=== PATIENT | male | born 1960 | race Caucasian/White ===

== ENCOUNTER → 2017-04-04 | Outpatient (CLI) | payer BC, MEDICARE, OTHER ==
[~2017-04-04] MED LIST: ACETAMINOPHEN325 MG PO; ALTACE10 MG PO; ANUCORT-HC25 MG/SUPP PR; ASPIRIN81 M1 PO; ASPIRIN81 MG PO; CLOPIDOGREL BIS75 MG PO; COMBIVENT U/D3 M2 IH; COMBIVENT U/D3 M2 INH; COREG12.5 MG PO; COUMADIN PO; COZAAR100 MG PO; EXFORGE HCT 101 EAC2 PO; FLEXERIL10 MG; FLEXERIL10 MG PO; FLOMAX0.4 M1 PO; FOLIC ACID1 MG PO; LIPITOR PO; LIPITOR20 MG PO; LODINE400 MG PO; LOPRESSOR PO; MONOCAPS TABLE1 EACH PO; MULTIVITAMIN1 UDCAP PO; NORVASC10 MG PO; OMEPRAZOLE40 M1 PO; PLAVIX PO; PREVACID15 MG PO; PRILOSEC PO; PROBIOTIC1 EAC1 PO; SYMBICORT INH; THIAMINE HCL100 MG PO; VALSARTAN80 MG PO; VENTOLIN IH; VENTOLIN5 MG/ML INH; VIIBRYD40 MG PO; ZOCOR80 MG PO; ZOLOFT100 MG PO
--- NOTE | ~2017-04-04 | ST ---
Unit #: [id number] #: [id number] Patient: TRAVIS SHEN [id number] [address] [address] [id number] O MR#: [id number] NAME: TRAVIS SHEN. : 1960 SEX: M STUDY DATE/TIME: 04/04/2017 UNIT: [facility] ROOM: STUDY DESCRIPTION: Stress test Attending Physician: Daisy Agustin M.D. Referring Physician: Daisy Agustin M.D. Primary Care Physician: Radha Khalil M.D. CARDIOLOGY REPORT EXAM Lexiscan stress test. FINDINGS Result text under nuclear order number. Please see this order for result text. Dictated by... Giacomo Kennedy/kimberly TD: 04/04/2017 13:39 JOB #: [id number] CARDIOLOGY REPORT Page 1 of 1 X Charlie Dempsey MD CARDIOLOGY REPORT
--- NOTE | ~2017-04-04 | TH ---
Unit #: [id number] #: [id number] Patient: TRAVIS SHEN [id number] [address] [address] [id number] O MR#: [id number] NAME: TRAVIS SHEN. : 1960 SEX: M STUDY DATE/TIME: 04/04/2017 UNIT: [facility] ROOM: STUDY DESCRIPTION: Cardiolite study Attending Physician: Daisy Agustin M.D. Referring Physician: Daisy Agustin M.D. Primary Care Physician: Radha Khalil M.D. CARDIOLOGY REPORT EXAM Stress and Cardiolite study. FINDINGS The patient's baseline heart rate is 57 beats per minute, blood pressure 153/77. The patient received Lexiscan infusion as per protocol. At peak infusion, heart rate 70, blood pressure 162/81. The patient's baseline EKG is showing sinus bradycardia with nonspecific ST-T changes. During Lexiscan infusion recovery, no further ST-T changes. The patient also received 10.67 mCi of Cardiolite at rest and 31.8 mCi of stress during stress. Both sets of images were compared. The patient shows a fairly uniform uptake of radiotracer except in inferoapical area, during the stress images, there was a small ischemic defect. No other defect was noted. The patient also had gated SPECT scan done which showed normal LV size and function. No wall motion abnormality detected. Ejection fraction is 56%. INTERPRETATION OF THE TEST 1. EKG part of the test negative for Lexiscan induced ischemia. 2. Nuclear part of the test is positive for small inferoapical ischemia. 3. Gated SPECT scan showed normal LV size and function. Dictated by... Giacomo Kennedy/kimberly TD: 04/04/2017 13:35 JOB #: [id number] CARDIOLOGY REPORT Page 1 of 1 X Charlie Dempsey MD CARDIOLOGY REPORT
== END | disposition home or self-care (01) ==
LOC: CNUC 07:35
DX: E78.5 Hyperlipidemia, unspecified (principal)
CPT/HCPCS: 78452; 93017; A9500; J2785

== ENCOUNTER → 2017-05-29 | Outpatient (CLI) | payer BC, MEDICARE, OTHER ==
--- NOTE | ~2017-05-29 | US85 ---
[facility] A Service of [facility] & [facility] RADIOLOGY TEXT RESULTS PATIENT: TRAVIS SHEN LOCATION: CNIV : 60 UNIT #: [id number] AGE: [address]: Radha Khalil MD SEX: M ORDER DR: [id number] [facility] [address] [place], [place] [address] [id number] O MR#: [id number] Acc #: [id number] NAME: TRAVIS SHEN. : 1960 SEX: M STUDY DATE/TIME: 05/29/2017 15:00 UNIT: [facility] ROOM: STUDY DESCRIPTION: LE [employer] Attending Physician: Radha Khalil M.D. Referring Physician: Radha Khalil M.D. Ordering Physician: Radha Khalil M.D. Primary Care Physician: Radha Khalil M.D. MEDICAL IMAGING REPORT This report is preliminary unless electronic signature is present EXAM Left lower extremity venous Doppler 05/29/2017 HISTORY Left leg pain for 3 weeks. FINDINGS The left common femoral vein, femoral vein, popliteal vein, tibial veins demonstrate patency and compressibility. There is phasic and spontaneous flow with respiration and augmentation. Proximal and distal greater saphenous vein is patent and compressible. IMPRESSION No evidence of left lower extremity deep vein thrombosis. Dictated by... Sherrie Mills M.D. THIS IS AN ELECTRONICALLY VERIFIED REPORT Sherrie Mills M.D. at 06/07/2017 8:50 AM Mariama TD: 05/30/2017 06:24 JOB #: [id number] MEDICAL IMAGING REPORT Page 1 of 1 COPY
--- NOTE | ~2017-05-29 | US136 ---
[facility] A Service of [facility] & [facility] RADIOLOGY TEXT RESULTS PATIENT: TRAVIS SHEN LOCATION: CNIV : 60 UNIT #: [id number] AGE: [address]: Radha Khalil MD SEX: M ORDER DR: [id number] [facility] [address] [place], [place] [address] [id number] O MR#: [id number] Acc #: [id number] NAME: TRAVIS SHEN. : 1960 SEX: M STUDY DATE/TIME: 05/29/2017 14:52 UNIT: [facility] ROOM: STUDY DESCRIPTION: US U/L Ext [employer] Bil Attending Physician: Radha Khalil M.D. Referring Physician: Radha Khalil M.D. Ordering Physician: Gautam Monroe Aprn Primary Care Physician: Radha Khalil M.D. MEDICAL IMAGING REPORT This report is preliminary unless electronic signature is present EXAM Bilateral lower extremity KIM. REASON FOR EXAM Peripheral arterial disease. FINDINGS The right brachial pressure is 171 and left is 211. Right dorsalis pedis pressure is 221 and posterior tibial of 221 for an KIM of 1.07 and a first toe pressure of 153 mmHg. Left dorsalis pedis pressure is 196 and posterior tibial is 191 for an KIM of 0.93 and a first toe pressure of 174 mmHg. PVR waveform at the ankle level was not obtained, but toe waveforms appeared to be normal bilaterally. Arterial waveforms of the dorsalis pedis and posterior tibial arteries noted triphasic waveforms bilateral. IMPRESSION No arterial insufficiency in either the right or the left lower extremity with adequate perfusion of the first toes. Dictated by... Sherrie Mills M.D. THIS IS AN ELECTRONICALLY VERIFIED REPORT Sherrei Mills M.D. at 05/31/2017 10:34 AM MARCI/emma TD: 05/30/2017 06:32 JOB #: [id number] MEDICAL IMAGING REPORT Page 1 of 1 COPY
--- NOTE | ~2017-05-29 | US83 ---
[facility] A Service of [facility] & [facility] RADIOLOGY TEXT RESULTS PATIENT: TRAVIS SHEN LOCATION: CNIV : 60 UNIT #: [id number] AGE: [address]: Radha Khalil MD SEX: M ORDER DR: [id number] [facility] [address] [place], [place] [address] [id number] O MR#: [id number] Acc #: [id number] NAME: TRAVIS SHEN. : 1960 SEX: M STUDY DATE/TIME: 05/29/2017 15:12 UNIT: [facility] ROOM: STUDY DESCRIPTION: US LE [employer] Attending Physician: Radha Khalil M.D. Referring Physician: Radha Khalil M.D. Ordering Physician: Gautam Monroe Aprn Primary Care Physician: Radha Khalil M.D. MEDICAL IMAGING REPORT This report is preliminary unless electronic signature is present EXAM Right lower extremity graft arterial duplex 05/29/2017 HISTORY Peripheral arterial disease. FINDINGS The right common femoral artery is the inflow vessel appears to be widely patent with a velocity of 84 cm/sec. Bypass graft is noted from the common femoral artery and appears to be widely patent. Proximal anastomosis is 97 cm/sec. Proximal bypass graft velocity is 76 cm/sec, upper thigh 69 cm/sec, mid thigh 71 cm/sec, distal thigh 65 cm/sec, and distally 72 cm/sec. Distal anastomosis is not well seen. Outflow via the posterior tibial artery is widely patent with a velocity of 87 cm/sec, peroneal artery widely patent with a velocity of 50 cm/sec. IMPRESSION Widely patent right femoral to popliteal artery bypass without evidence of engraft stenosis or impending failure. Dictated by... Sherrie Mills M.D. THIS IS AN ELECTRONICALLY VERIFIED REPORT Sherrie Mills M.D. at 05/31/2017 10:34 AM MARCI/cortney TD: 05/30/2017 06:29 JOB #: [id number] MEDICAL IMAGING REPORT [facility] A Service of [facility] & [facility] RADIOLOGY TEXT RESULTS PATIENT: TRAVIS SHEN LOCATION: CNIV : 60 UNIT #: [id number] AGE: [address]: Radha Khalil MD SEX: M ORDER DR: Page 1 of 1 COPY
== END | disposition home or self-care (01) ==
LOC: SNIV 14:00 → CNIV 14:32
DX: I73.9 Peripheral vascular disease, unspecified (principal); M79.605 Pain in left leg; Z86.718 Personal history of other venous thrombosis and embolism; Z95.828 Presence of other vascular implants and grafts
CPT/HCPCS: 93922; 93926; 93971